=== PATIENT | female | born 1990 | race Asian ===

== ENCOUNTER 2016-09-07 15:57 | Emergency (ER) | payer OTHER ==
[~2016-09-07] VITALS: Ht 160 cm; Wt 50.0 kg
[~2016-09-07 15:57] MED LIST: ADDE20XR PO; NORE1TAB60 PO; PROZ20CA11 PO
[2016-09-07 15:58] VITALS: BP 178/109; PULSE 90; RESP 20; TEMP 99; O2SAT 100
--- NOTE | 2016-09-07 16:07 | PD ---
Physical Exam Time Seen by Provider: 16:04 Narrative 26yo F c/o allergic reaction w/ hives and swollen lips since about 2:45pm. Ate skittles last before onset of symptoms. Says she has sensation of lump in throat, but denies airway edema, tongue edema, SOB. Patient seen in triage. VS reviewed. Awaiting bed placement. Data Data Last Documented VS Vital Signs Date Time Temp Pulse Resp B/P Pulse Ox O2 Delivery O2 Flow Rate FiO2 09/07/16 15:58 99.0 90 20 178/109 100 Room Air MDM Supervised Visit with ARABELLA: Shania Verde Sep 07, 2016 16:07
[2016-09-07] MEDS ORDERED: SODIUM CHLOR 0.9% 1000 ML INJ 1,000 ML IV SCH (16:21)
[2016-09-07 16:22] VITALS: PULSE 88; RESP 18; O2SAT 99
[2016-09-07] MEDS ORDERED: EPINEPHrine HCL (1:1000) 1 MG/ML VIAL IM ONE (16:30)
[2016-09-07] MEDS ORDERED: FAMOTIDINE 20 MG/2 ML VIAL IV PUSH ONE (16:30)
[2016-09-07] MEDS ORDERED: methylPREDNISolone SOD SUCC 125 MG/2 ML VIAL IVP ONE (16:30)
[2016-09-07] MEDS ORDERED: SODIUM CHLORIDE 0.9% FLUSH 10 ML FLUSH IV FLUSH PRN (16:30)
[2016-09-07] MEDS ORDERED: diphenhydrAMINE HCL 50 MG/ML VIAL IVP ONE (16:30)
--- NOTE | 2016-09-07 16:54 | PD ---
HPI Chief Complaint: Allergic/Adverse Reaction Time Seen by Provider: 16:21 Travel History International Travel<30 days: No Contact w/Intl Traveler<30days: No Traveled to known affect area: No History of Present Illness HPI The patient is 26 years old. About 2 hours prior to ER arrival she developed swelling of the upper lip. It gradually worsened leading to her ER evaluation. She has a history of environmental allergies to mold and dust. She has not been exposed to any allergen that she is aware of today. Pt informed midlevel provider that she ingested skittles before onset of swelling. No dyspnea. Total body pruritius reported. No rash observed. PFSH Past Medical History ADHD: Yes Tetanus Vaccination: < 5 Years ?: Not : 1 Para: 0 Past Surgical History Other Surgery: Yes (breast) Social History Alcohol Use: No Tobacco Use: Yes Substance Use: No Allergies-Medications (Allergen,Severity, Reaction): Coded Allergies: Lortab (Verified Allergy, Severe, vomit, 09/07/16) Reported Meds & Prescriptions Reported Meds & Active Scripts Active Reported Adderall Xr 24 HR (Amphetamine/Dextroamphetamine) 20 Mg Cap 20 Mg PO DAILY Once daily in the morning. Review of Systems Except as stated in HPI: all other systems reviewed are Neg Physical Exam Narrative GENERAL: 26 yo F, WNWD, NAD, speaking full sentences SKIN: Warm and dry. HEAD: Atraumatic. Normocephalic. EYES: Pupils equal and round. No scleral icterus. No injection or drainage. ENT: Posterior oropharynx widely patent. Speaking full sentences. No tongue swelling. Angioedema is present throughout the entire upper lip though predominantly on the R with a similar distribution of the lower lip. NECK: Trachea midline. No JVD. CARDIOVASCULAR: Regular rate and rhythm. RESPIRATORY: No accessory muscle use. Clear to auscultation. Breath sounds equal bilaterally. GASTROINTESTINAL: Abdomen soft, non-tender, nondistended. Hepatic and splenic margins not palpable. MUSCULOSKELETAL: Extremities without clubbing, cyanosis, or edema. No obvious deformities. NEUROLOGICAL: Awake and alert. No obvious cranial nerve deficits. Motor grossly within normal limits. Five out of 5 muscle strength in the arms and legs. Normal speech. PSYCHIATRIC: Appropriate mood and affect; insight and judgment normal. Data Data Last Documented VS Vital Signs Date Time Temp Pulse Resp B/P Pulse Ox O2 Delivery O2 Flow Rate FiO2 09/07/16 16:22 88 18 99 09/07/16 15:58 99.0 178/109 Room Air VS reviewed Orders Ecg Monitoring (09/07/16 16:21) Iv Access Insert/Monitor (09/07/16 16:21) Oximetry (09/07/16 16:21) Diphenhydramine Inj (Benadryl Inj) (09/07/16 16:30) Methylprednisolone So Succ Inj (Solumedr (09/07/16 16:30) Famotidine Inj (Pepcid Inj) (09/07/16 16:30) Sodium Chlor 0.9% 1000 Ml Inj (Ns 1000 M (09/07/16 16:21) Sodium Chloride 0.9% Flush (Ns Flush) (09/07/16 16:30) Epinephrine (1:1000) Inj (Adrenalin (1:1 (09/07/16 16:30) MDM Medical Decision Making Medical Screen Exam Complete: Yes Emergency Medical Condition: Yes Medical Record Reviewed: Yes Differential Diagnosis allergic reaction, anaphylaxis, angioedema Narrative Course Patient received Solu-Medrol Benadryl and Pepcid. A liter normal saline was started. The patient received 0.3 mg IM epinephrine as well. At 4:55 PM patient reassessed and on exam the angioedematous changes of the lips appear stable and the patient reports some subjective improvement predominantly of the lower lip. Oncoming provier to follow up exam and disposition patient appropriately. Kiko Dong MD Sep 07, 2016 16:54
[2016-09-07 17:32] VITALS: BP 156/68; PULSE 102; RESP 20; O2SAT 100
[2016-09-07 18:56] VITALS: BP 125/83; PULSE 93; RESP 20; O2SAT 100
[2016-09-07] MEDS ORDERED: PRED20 PO (19:16)
[2016-09-07] MEDS ORDERED: BENA25CA4 PO (19:16)
--- NOTE | 2016-09-07 19:16 | PD ---
Physical Exam Date Seen by Provider: Sep 07, 2016 Narrative 26-year-old female came to the emergency room with history of allergic reaction in the form of angioedema of her upper and lower lips. She was given epinephrine, Benadryl and steroid by the previous ER physician. Case was signed out to me to observe her. I just went to see her and she says that the swelling has come down a little bit. Definitely has not worsened. No airway issues. Patient is not drooling. She is comfortable going home. I'll discharge her home on prescriptions. Data Data Last Documented VS Vital Signs Date Time Temp Pulse Resp B/P Pulse Ox O2 Delivery O2 Flow Rate FiO2 09/07/16 18:56 93 20 125/83 100 09/07/16 15:58 99.0 Room Air Orders Ecg Monitoring (09/07/16 16:21) Iv Access Insert/Monitor (09/07/16 16:21) Oximetry (09/07/16 16:21) Diphenhydramine Inj (Benadryl Inj) (09/07/16 16:30) Methylprednisolone So Succ Inj (Solumedr (09/07/16 16:30) Famotidine Inj (Pepcid Inj) (09/07/16 16:30) Sodium Chlor 0.9% 1000 Ml Inj (Ns 1000 M (09/07/16 16:21) Sodium Chloride 0.9% Flush (Ns Flush) (09/07/16 16:30) Epinephrine (1:1000) Inj (Adrenalin (1:1 (09/07/16 16:30) MDM Supervised Visit with ARABELLA: No Diagnosis Primary Impression: Angioedema Qualified Code: T78.3XXA - Angioedema, initial encounter Additional Impression: Allergic reaction Qualified Code: T78.40XA - Allergic reaction, initial encounter Referrals: Primary Care Physician 2 days Additional Instruction: Please return to the ER if the condition worsens or any other new concerns. Otherwise follow-up with your primary care in couple days. Take the medication as per the prescription direction. Do not drive or operate heavy machinery while taking the Benadryl since it'll make you groggy. Med/Other Pt SpecificInfo: Prescription(s) given Scripts Prednisone 20 Mg Tab20 Mg PO BID 3 Days Ref 0 Prov:Walter Arrington MD 09/07/16 Diphenhydramine HCl (Benadryl Allergy)25 Mg Cap1 Tab PO Q6HR #20 Prov:Walter Arrington MD 09/07/16 Disposition: 01 DISCHARGE HOME Condition: Stable Walter Arrington MD Sep 07, 2016 19:16
== END 2016-09-07 19:40 | disposition home or self-care (01) ==
LOC: NEPD 15:57
DX: T78.3XXA Angioneurotic edema, initial encounter (principal); T78.40XA Allergy, unspecified, initial encounter; R22.0 Localized swelling, mass and lump, head; F90.9 Attention-deficit hyperactivity disorder, unspecified type; Z79.899 Other long term (current) drug therapy; Z72.0 Tobacco use
CPT/HCPCS: 96372; 96374; 96375; 99284; J0171; J1200; J2930; J7030

== ENCOUNTER → 2016-10-24 | Outpatient (CLI) | payer OTHER ==
[~2016-10-24] MED LIST changes: +BENA25CA4 PO; +ERGO1CAP30 PO; +GABA100C4 PO; +LEVOTAB PO; +LO LTAB PO; -NORE1TAB60 PO; +PRED20 PO; -PROZ20CA11 PO; +TRIMSOL LEFT EYE
[2016-10-24 09:30] LABS: BLOOD, URINE NEG (NEG); COMMENT (UR) CULT NOT INDICATED; CULTURE IF INDICATED CULT NOT INDICATED; GLUCOSE,URINE NEG (NEG); KETONE, URINE TRACE mg/dL (NEG); MUCUS URINE FEW /lpf (OCC); NITRITE,URINE NEG (NEG); PH, URINE 7.5 (5.0-8.5); SQUAMOUS EPITHELIAL CELL URINE 1 /hpf (0-5); URINE COLOR YELLOW (YELLW/STRAW)
[2016-10-24 09:31] LABS: AUTOMATED NEUTROPHIL # 9.2 TH/MM3 (1.8-7.7); BASOPHIL # 0.1 TH/MM3 (0-0.2); BASOPHIL % 0.4 % (0.0-2.0); EOSINOPHIL # 0.3 TH/MM3 (0-0.4); EOSINOPHIL % 2.6 % (0.0-4.0); HEMATOCRIT 39.3 % (35.0-46.0); HEMO FLAGS DIFF FINAL; LYMPH % 16.6 % (9.0-44.0); MEAN CELL VOLUME 87.6 FL (80.0-100.0); MEAN CORPUSCULAR HEMOGLOBIN 28.4 PG (27.0-34.0); MEAN CORPUSCULAR HGB CONC 32.4 % (32.0-36.0); MONO % 5.4 % (0.0-8.0); PLATELET COUNT 239 TH/MM3 (150-450); RED BLOOD COUNT 4.48 MIL/MM3 (4.00-5.30); RED CELL DISTRIBUTION WIDTH 13.3 % (11.6-17.2); WHITE BLOOD COUNT 12.3 TH/MM3 (4.0-11.0)
[2016-10-24 09:59] LABS: ANION GAP 7 MEQ/L (5-15); AST (GOT) 10 U/L (15-37); BICARBONATE 22.6 MEQ/L (21.0-32.0); BLOOD UREA NITROGEN 7 MG/DL (7-18); CHLORIDE 106 MEQ/L (98-107); GLOMERULAR FILTRATION RATE 153 ML/MIN (>89); GLUCOSE,FASTING 81 MG/DL (74-99); POTASSIUM 3.8 MEQ/L (3.5-5.1); SODIUM (NA) 136 MEQ/L (136-145)
[2016-10-24 10:08] LABS: ALKALINE PHOSPHATASE 32 U/L (45-117); ALT (GPT) 18 U/L (10-53); HDL CHOLESTEROL 62.5 MG/DL (40.0-60.0); LDL CHOLESTEROL 37 MG/DL (0-99); TOTAL BILIRUBIN ADULT 0.4 MG/DL (0.2-1.0)
[2016-10-26 13:53] LABS: IGA SERUM 135 mg/dL (81-463)
[2016-10-28 07:50] LABS: ENDOMYSIAL AB TITER ND (<1:5); TISSUE TRANSGLUTAMINASE AB LESS THAN 1 U/mL (0-4)
== END ==
LOC: CLAB 08:54
PROVIDERS: ATTEND Nurse Practitioner Family
DX: L50.9 Urticaria, unspecified (principal); R51 Headache; R11.0 Nausea; E55.9 Vitamin D deficiency, unspecified; G47.00 Insomnia, unspecified; Z11.3 Encounter for screening for infections with a predominantly sexual mode of transmission
CPT/HCPCS: 36415; 80053; 80061; 81001; 82306; 82784; 83516; 84443; 85025; 86592; 86695; 86696; 86703; 86707; 86803; 87350

== ENCOUNTER 2017-02-04 11:28 | Emergency (ER) | payer OTHER ==
[~2017-02-04 11:28] MED LIST changes: -ADDE20XR PO; -BENA25CA4 PO; -ERGO1CAP30 PO; -PRED20 PO; +VITA500012 PO
[2017-02-04 11:29] VITALS: BP 142/104; PULSE 100; RESP 16; TEMP 99; O2SAT 100
[2017-02-04 13:07] LABS: AUTOMATED NEUTROPHIL # 7.1 TH/MM3 (1.8-7.7); BASOPHIL % 0.2 % (0.0-2.0); EOSINOPHIL # 0.2 TH/MM3 (0-0.4); EOSINOPHIL % 2.2 % (0.0-4.0); HEMATOCRIT 42.2 % (35.0-46.0); HEMO FLAGS DIFF FINAL; LYMPHOCYTE # 2.2 TH/MM3 (1.0-4.8); MEAN CELL VOLUME 87.6 FL (80.0-100.0); MEAN CORPUSCULAR HEMOGLOBIN 29.6 PG (27.0-34.0); MEAN CORPUSCULAR HGB CONC 33.7 % (32.0-36.0); MONO % 5.8 % (0.0-8.0); NEUT % 69.8 % (16.0-70.0); PLATELET COUNT 291 TH/MM3 (150-450); RED BLOOD COUNT 4.81 MIL/MM3 (4.00-5.30); RED CELL DISTRIBUTION WIDTH 12.6 % (11.6-17.2); WHITE BLOOD COUNT 10.1 TH/MM3 (4.0-11.0)
[2017-02-04 13:23] LABS: BICARBONATE 27.5 MEQ/L (21.0-32.0); POTASSIUM 3.5 MEQ/L (3.5-5.1)
[2017-02-04 13:28] LABS: BACTERIA, URINE RARE /hpf; BLOOD, URINE LARGE (NEG); GLUCOSE,URINE NEG (NEG); KETONE, URINE NEG (NEG); MUCUS URINE MANY /lpf (OCC); NITRITE,URINE NEG (NEG)
[2017-02-04 13:30] LABS: COMMENT (UR) CULTURE INDICATED; CULTURE IF INDICATED CULTURE INDICATED; URINE COLOR RED (YELLW/STRAW)
[2017-02-04] MEDS ORDERED: MACR100C2 PO (13:52)
--- NOTE | 2017-02-04 13:52 | PD ---
HPI Chief Complaint: [place] [facility] [employer] Problem/Complaint Time Seen by Provider: 12:08 Travel History International Travel<30 days: No Contact w/Intl Traveler<30days: No Traveled to known affect area: No History of Present Illness HPI 26yo F with no PMH presents to the ED with c/o heavy vaginal bleeding for a few days. Said that is not usual for her. Had some intermittent lower abdominal cramping. Denies any fever, chest pain, sob, n/v, dysuria, vaginal discharge. PFSH Past Medical History ADHD: Yes ?: Unknown : 1 Para: 0 Miscarriage: 1 Past Surgical History Other Surgery: Yes (breast augmentation) Social History Alcohol Use: Yes (frequently) Tobacco Use: Yes (2-3 cigs a week) Substance Use: No Allergies-Medications (Allergen,Severity, Reaction): Coded Allergies: acetaminophen (Verified Allergy, Severe, vomit, 10/26/16) hydrocodone (Verified Allergy, Severe, vomit, 10/26/16) Reported Meds & Prescriptions Reported Meds & Active Scripts Active Macrobid (Nitrofurantoin Monoh/Nitrofur Macro) 100 Mg Cap 100 Mg PO BID 5 Days Ergocalciferol 50,000 Unit Cap 50,000 Units PO Q7D Reported Lo Loestrin Fe 1/10 (Norethindrone-Ethinyl Estradiol-Fe) 1-10 Mg-Mcg Tab 1 Tab PO DAILY Review of Systems Except as stated in HPI: all other systems reviewed are Neg Physical Exam Narrative GENERAL: 26yo F not in distress. SKIN: Focused skin assessment warm/dry. HEAD: Atraumatic. Normocephalic. EYES: Pupils equal and round. No scleral icterus. No injection or drainage. CARDIOVASCULAR: Regular rate and rhythm. No murmur appreciated. RESPIRATORY: No accessory muscle use. Clear to auscultation. Breath sounds equal bilaterally. GASTROINTESTINAL: Abdomen soft, non-tender, nondistended. No rebound tenderness or guarding. PELVIC: +Blood in vaginal vault. Blood in coming from cervix. No CMT or adnexal tenderness. No vaginal wall lacerations. MUSCULOSKELETAL: No obvious deformities. No clubbing. No cyanosis. No edema. NEUROLOGICAL: Awake and alert. No obvious cranial nerve deficits. Motor grossly within normal limits. Normal speech. PSYCHIATRIC: Appropriate mood and affect; insight and judgment normal. Data Data Last Documented VS Vital Signs Date Time Temp Pulse Resp B/P (MAP) Pulse Ox O2 Delivery O2 Flow Rate FiO2 02/04/17 12:21 89 18 02/04/17 11:29 99.0 142/104 (117) 100 Orders Orders Complete Blood Count With Diff (02/04/17 12:37) Basic Metabolic Panel (Bmp) (02/04/17 12:37) Ed Urine Pregnancytest Poc (02/04/17 12:37) Urinalysis - C+S If Indicated (02/04/17 12:37) Urine Culture (02/04/17 12:47) Ed Discharge Order (02/04/17 13:52) Labs Laboratory Tests Test 02/04/17 12:47 White Blood Count 10.1 TH/MM3 Red Blood Count 4.81 MIL/MM3 Hemoglobin 14.2 GM/DL Hematocrit 42.2 % Mean Corpuscular Volume 87.6 FL Mean Corpuscular Hemoglobin 29.6 PG Mean Corpuscular Hemoglobin Concent 33.7 % Red Cell Distribution Width 12.6 % Platelet Count 291 TH/MM3 Mean Platelet Volume 7.8 FL Neutrophils (%) (Auto) 69.8 % Lymphocytes (%) (Auto) 22.0 % Monocytes (%) (Auto) 5.8 % Eosinophils (%) (Auto) 2.2 % Basophils (%) (Auto) 0.2 % Neutrophils # (Auto) 7.1 TH/MM3 Lymphocytes # (Auto) 2.2 TH/MM3 Monocytes # (Auto) 0.6 TH/MM3 Eosinophils # (Auto) 0.2 TH/MM3 Basophils # (Auto) 0.0 TH/MM3 CBC Comment DIFF FINAL Differential Comment Urine Color RED Urine Turbidity CLOUDY Urine pH 6.0 Urine Specific [place] 1.028 Urine Protein 100 mg/dL Urine Glucose (UA) NEG mg/dL Urine Ketones NEG mg/dL Urine Occult Blood LARGE Urine Nitrite NEG Urine Bilirubin NEG Urine Urobilinogen 2.0 MG/DL Urine Leukocyte Esterase NEG Urine RBC /hpf Urine WBC 45 /hpf Urine Bacteria RARE /hpf Urine Mucus MANY /lpf Microscopic Urinalysis Comment CULTURE INDICATED Blood Urea Nitrogen 8 MG/DL Creatinine 0.71 MG/DL Random Glucose 92 MG/DL Calcium Level 8.7 MG/DL Sodium Level 138 MEQ/L Potassium Level 3.5 MEQ/L Chloride Level 104 MEQ/L Carbon Dioxide Level 27.5 MEQ/L Anion Gap 7 MEQ/L Estimat Glomerular Filtration Rate 100 ML/MIN [facility] Medical Decision Making Medical Screen Exam Complete: Yes Emergency Medical Condition: Yes Differential Diagnosis Abnormal uterine bleeding vs. metromenorrhagia Narrative Course 26yo F with heavy vaginal bleeding. Urine negative. Labs reviewed, no leukocytosis. H/H normal at 14.2/42.2. BMP unremarkable. UA showed large blood. WBC 45. Culture indicated. Will cover with antibiotics. Pt has appointment with CULTURE ROOM WORKER today. Instructed her to go now. Diagnosis Primary Impression: UTI (urinary tract infection) Qualified Codes: N39.0 - Urinary tract infection, site not specified; R31.9 - Hematuria, unspecified Additional Impression: Vaginal bleeding Patient Instructions: General Instructions Departure Forms: Tests/Procedures Additional Instructions: Please follow up with your C[facility] ROOM WORKER today. Return to the ED if symptoms worsen. Med/Other Pt SpecificInfo: Prescription(s) given Scripts Nitrofurantoin Monohydrate Macrocrystals (Macrobid) 100 Mg Cap 100 MG PO BID for Infection for 5 Days, #10 CAP 0 Refills Prov: Astrid Richardson DO 02/04/17 Disposition: 01 DISCHARGE HOME Condition: Stable Astrid Richardson DO Feb 04, 2017 13:52
== END 2017-02-04 14:38 | disposition home or self-care (01) ==
LOC: NEPC 11:28
DX: N39.0 Urinary tract infection, site not specified (principal); B96.89 Other specified bacterial agents as the cause of diseases classified elsewhere; N93.9 Abnormal uterine and vaginal bleeding, unspecified; F90.9 Attention-deficit hyperactivity disorder, unspecified type; F17.210 Nicotine dependence, cigarettes, uncomplicated; Z79.899 Other long term (current) drug therapy; Z88.6 Allergy status to analgesic agent; Z88.5 Allergy status to narcotic agent
CPT/HCPCS: 80048; 81001; 84703; 85025; 87086; 99285